=== PATIENT | female | born 1940 | race Caucasian/White ===

== ENCOUNTER 2017-02-01 10:45 | Day surgery (SDC) | payer MEDICARE, BC ==
[~2017-02-01 10:45] MED LIST: ceFAZolin 1,000 MG in SODIUM CHLORIDE 0.9% IRRIGATIO 250 ML IRRIGATION ONE; ceFAZolin 2 GM in SODIUM CHLORIDE 0.9% 100 ML IVPB ONE
[2017-02-01 11:16] LABS: Glucose,Whole Blood 134 mg/dL (75-99)
[2017-02-01 11:22] LABS: Basophils # (A) 0.1 k/uL (0-0.2); Basophils % (A) 0 %; CH 29.3; CHCM 32.2; Eosinophils # (A) 0.1 k/uL (0-0.7); Eosinophils % (A) 1 %; HCT 44.6 % (34.0-46.0); HDW 2.41; HGB 14.6 gm/dL (11.4-16.0); Luc # (Auto) 0.16; Luc % (Auto) 1; Lymphocytes # (A) 1.9 k/uL (1.0-4.8); Lymphocytes % (A) 13 %; MCH 29.9 pg (25.0-35.0); MCHC 32.6 g/dL (31.0-37.0); MCV 91.6 fL (80.0-100.0); Monocytes # (A) 0.5 k/uL (0-1.0); Monocytes % (A) 4 %; Neutrophils # (A) 11.6 k/uL (1.3-7.7); Neutrophils % (A) 81 %; RBC 4.88 m/uL (3.80-5.40); RDW 14.2 % (11.5-15.5); WBC 14.3 k/uL (3.8-10.6)
[2017-02-01 11:30] LABS: Anion Gap 14 mmol/L; Blood Urea Nitrogen 11 mg/dL (7-17); Calcium 9.5 mg/dL (8.4-10.2); Carbon Dioxide 25 mmol/L (22-30); Chloride 104 mmol/L (98-107); Glucose 138 mg/dL (74-99); Non-African American GFR(MDRD) >60 (>60 ml/min/1.73 sqM); Sodium 143 mmol/L (137-145)
[2017-02-01] MEDS ORDERED: SODIUM CHLORIDE 0.9% 500 ML IV ONE (11:30)
[2017-02-01 11:31] LABS: INR 1.8 (<1.1); Potassium 4.3 mmol/L (3.5-5.1); Prothrombin Time 17.6 sec (9.0-12.0)
[2017-02-01] MEDS ORDERED: fentaNYL (PF) 50 MCG/ML 2 ML AMP ONE (14:09)
[2017-02-01] MEDS ORDERED: fentaNYL (PF) 50 MCG/ML 2 ML AMP IV ONE (14:11)
[2017-02-01] MEDS ORDERED: MIDAZOLAM 2 MG/2 ML VIAL ONE (14:29)
[2017-02-01] MEDS ORDERED: LIDOCAINE 1% INJ 10MG/ML (20 ML MDV) SQ ONE ×2 (14:30→14:38)
[2017-02-01] MEDS ORDERED: MIDAZOLAM 2 MG/2 ML VIAL IV ONE (14:32)
--- NOTE | 2017-02-01 15:23 | P.PCN ---
Preoperative Diagnosis: Patient underwent EP procedure under conscious sedation/moderate sedation, monitoring of the level of consciousness and physiologic parameters including but not limited to vital signs and oxygenation. Patient tolerated the procedure well without any acute complications. Start time: 1411 Stop time: 1507
[2017-02-01] MEDS ORDERED: ACETAMINOPHEN TAB 325 MG TAB PO PRN (15:24)
[2017-02-01] MEDS ORDERED: traMADol-ACETAMINOP 37.5-325MG 1 EACH TAB PO PRN (15:25)
[2017-02-01] MEDS ORDERED: FUROSEMIDE 20 MG TAB PO PRN (15:25)
[2017-02-01] MEDS ORDERED: RISEDRONATE SODIUM 150 MG PO SCH (15:30)
--- NOTE | 2017-02-01 15:45 | PCN ---
DATE OF PROCEDURE: 02/01/2017 This patient is a 76-year-old female with underlying atrial fibrillation and bradycardia, on rate control and anticoagulation strategy, referred for pacemaker generator change battery for normal battery depletion. Patient was brought to the EP lab in a fasting state. Written informed consent was obtained prior to the procedure. The left shoulder area was prepped and draped as per protocol. Lidocaine 1% was used for local anesthesia. A 4 cm incision was made directly over the previous surgical site and carried down to the level of the pectoralis muscle. Scar was excised. Partial capsulectomy was performed. The old generator was disconnected. The pacemaker lead was interrogated. The new generator was implanted. Wound was closed in 3 layers and dressed per protocol, achieving hemostasis. The chronic RV lead was a Medtronic model #5092, 58 cm in length, and serial #[id number]. The chronic generator was a Medtronic Sesr01 serial #[id number]. It was originally implanted in the November of 2008. The new generator implanted was a [employer] model # PY2039, serial #[id number]. The lead was interrogated. The R waves were 10.4 mV, pacing impedance of 550 ohms, pacing threshold 0.5 v at 0.5 ms. Ten-volt test was negative. RESULT: Successful single-chamber pacemaker generator change for atrial fibrillation with bradycardia, on rate control and anticoagulation strategy. PLAN: Program pacemaker to VVI 50 bpm and add rate responsiveness as indicated by pacemaker telemetry in the next several weeks to months.
--- NOTE | 2017-02-01 15:47 | LTR ---
February 01, 2017 RE: Titus Tanya P Dear Kenzie, I had the pleasure of seeing Tanya Qureshi in electrophysiology followup for pacemaker generator change. Battery is at elective replacement for normal battery depletion. She underwent successful pacemaker generator change without any acute complications. She will be monitored overnight on telemetry and will be discharged home after receiving 4 doses of IV antibiotics. Thank you for entrusting me with the care of your patient. Warm regards. Sincerely, NACHO RESENDIZ MD
[2017-02-01] MEDS ORDERED: ACETAMINOPHEN IV (For NPO) 1,000 MG in EMPTY BAG 1 BAG IVPB ONE (17:00)
[2017-02-01 17:32] LABS: Glucose,Whole Blood 150 mg/dL (75-99)
[2017-02-01 17:39] VITALS: BMI 42.8
[2017-02-01] MEDS: SODIUM CHLORIDE 0.9% 1,000 ML IV SCH (19:32)
[2017-02-01 20:35] LABS: Glucose,Whole Blood 179 mg/dL (75-99)
[2017-02-01] MEDS: ceFAZolin 2 GM in SODIUM CHLORIDE 0.9% 100 ML IVPB SCH (20:35)
[2017-02-01] MEDS: METOPROLOL TARTRATE 50 MG TAB PO SCH (20:35)
[2017-02-01] MEDS: metFORMIN 500 MG TAB PO SCH (20:35)
[2017-02-01] MEDS: HYDROcodone/APAP 5-325MG 1 EACH TAB PO PRN (22:09)
[2017-02-02] MEDS: ceFAZolin 2 GM in SODIUM CHLORIDE 0.9% 100 ML IVPB SCH ×3 (02:23→12:49)
[2017-02-02] MEDS: HYDROcodone/APAP 5-325MG 1 EACH TAB PO PRN (05:40)
[2017-02-02 06:45] LABS: Glucose,Whole Blood 134 mg/dL (75-99)
[2017-02-02 07:50] VITALS: RESP 18
[2017-02-02] MEDS: metFORMIN 500 MG TAB PO SCH (08:13)
[2017-02-02] MEDS: METOPROLOL TARTRATE 50 MG TAB PO SCH (08:13)
[2017-02-02] MEDS: SODIUM CHLORIDE 0.9% 1,000 ML IV SCH (08:21)
[2017-02-02] MEDS ORDERED: LISINOPRIL 2.5 MG TAB PO SCH (09:00)
[2017-02-02] MEDS ORDERED: DILTIAZEM CD 180 MG CAP.ER.24H PO SCH (09:00)
[2017-02-02] MEDS ORDERED: EZETIMIBE 10 MG TAB PO SCH (09:00)
[2017-02-02 11:38] VITALS: BP 116/58; PULSE 89; TEMP 97.9
[2017-02-02 11:55] LABS: Glucose,Whole Blood 129 mg/dL (75-99)
== END 2017-02-02 14:40 | disposition home or self-care (01) ==
LOC: CATHEP 10:45 → 3OBS 15:14 → CATHEP 02-02 14:40
PROVIDERS: ATTEND Internal Medicine Clinical Cardiac Electrophysiology
DX: Z45.018 Encounter for adjustment and management of other part of cardiac pacemaker (principal); I48.2 Chronic atrial fibrillation; R00.1 Bradycardia, unspecified; Z79.01 Long term (current) use of anticoagulants; I25.10 Atherosclerotic heart disease of native coronary artery without angina pectoris; I10 Essential (primary) hypertension; Z82.49 Family history of ischemic heart disease and other diseases of the circulatory system; E11.9 Type 2 diabetes mellitus without complications; Z79.84 Long term (current) use of oral hypoglycemic drugs; E78.2 Mixed hyperlipidemia; Z79.899 Other long term (current) drug therapy; Z88.1 Allergy status to other antibiotic agents
CPT/HCPCS: 33227; 80048; 85025; 85610; C1786; J2250; J0690 ×2; J2001; J3010

== ENCOUNTER → 2017-06-15 | Outpatient (CLI) | payer MEDICARE, BC ==
--- NOTE | 2017-06-16 07:06 | US ---
EXAMINATION TYPE: US thyroid st tissue head/neck DATE OF EXAM: 06/15/2017 COMPARISON: NONE CLINICAL HISTORY: Neck Nodule R22.1. Pt states palpable lump left lateral neck x 6 weeks/ pt denies p ain in area Left lateral neck where pt feels palpable shows a hypoechoic, vascular lesion= 3.3 x 1.4 x 1.6 cm ?lymph node At area of palpable abnormality there is well-defined oval-shaped fairly homogeneous hypervascular le indira as noted above, does not have imaging characteristics consistent with benign lymph node. IMPRESSION: Abnormal solid lesion at level of palpable abnormality, malignant adenopathy is in differential. Cont rast-enhanced neck CT correlation advised to further evaluate this lesion and assess for additional l esions.
== END | disposition home or self-care (01) ==
LOC: RADUSMAIN 17:29
PROVIDERS: ATTEND Family Medicine
DX: R22.1 Localized swelling, mass and lump, neck (principal)
CPT/HCPCS: 76536

== ENCOUNTER → 2017-06-24 | Outpatient (CLI) | payer MEDICARE, BC ==
[2017-06-24 11:30] LABS: Blood Urea Nitrogen 13 mg/dL (7-17); Non-African American GFR(MDRD) >60 (>60 ml/min/1.73 sqM)
--- NOTE | 2017-06-24 12:38 | CT ---
EXAMINATION TYPE: CT soft tissue neck w con DATE OF EXAM: 06/24/2017 HISTORY: Patient complains of neck mass, marked by BB. COMPARISON: Thyroid ultrasound dated 06/15/2017 CT DLP: 294.2 mGycm. Automated Exposure Control for Dose Reduction was Utilized. TECHNIQUE: CT scan of the neck is performed with IV Contrast, patient injected with 100 mL of Omnipa que 300, axial images are obtained, coronal and sagittal reformatted images are reviewed. FINDINGS: Airway: No gross abnormality seen. Parotid/submandibular glands: Eccentric within the superficial lobe of the left parotid gland but ext ending into the deep lobe there is a hyperattenuated, well-circumscribed, noncystic 2.0 x 1.5 x 2.9 c m mass with a to extend inferiorly outside of the parotid gland. This is seen posterior to the retrom andibular vein, however a branch of the retromandibular vein surrounds this mass and therefore cautio n is advised if biopsy is performed. No adjacent or abnormal appearing lymph nodes are seen within th e neck. Left jugulodigastric node measures 6 mm x 8 mm, within normal limits. The remainder the left parotid gland appears unremarkable. Carotid/Vascular Structures: Bilateral calcific atheromatous plaquing within the common carotid arter ies, greatest within the carotid bulbs, and left internal carotid artery just distal to the carotid b ulb with approximately 65% short segment luminal narrowing. Osseous Structures: Multilevel degenerative changes are displayed as intervertebral disc space narrow ing, endplate sclerosis, disc ossify complexes, and facet arthropathy. IMPRESSION: 2.9 cm left parotid gland mass closely associated with the retromandibular vein with no a djacent lymphadenopathy. 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 Considerations are for pleomorphic adenoma, mucoepidermoid carcinoma or other noncystic parotid n eoplasm. Further characterization could be performed with MR. If percutaneous sampling is performed a ttention should be paid to the close association with the retromandibular vein.
== END | disposition home or self-care (01) ==
LOC: RADCTMAIN 10:47
PROVIDERS: ATTEND Family Medicine
DX: K11.8 Other diseases of salivary glands (principal); R22.1 Localized swelling, mass and lump, neck
CPT/HCPCS: 82565; 84520; 70491; 36415; Q9967

== ENCOUNTER 2024-09-14 06:15 | Inpatient (IN) | payer MEDICARE, BC ==
[2024-09-14] MEDS ORDERED: HYDROmorphone 1 MG/ML 1 ML SYRINGE IVP STA (06:51)
--- NOTE | 2024-09-14 06:51 | ED ---
Fall HPI - General Chief Complaint: Fall Stated Complaint: Fall, R Leg Injury Time Seen by Provider: 09/14/24 06:50 Source: patient, family, RN notes reviewed Mode of arrival: wheelchair Limitations: no limitations - History of Present Illness Initial Comments: 84-year-old female presenting to the ER with a chief complaint of falls. Family is aiding in HPI as patient is a poor historian and has memory impairment. Daughter, at bedside, state is in the past 24 to 36 hours patient has had multiple falls. Patient was getting up off the toilet and started to experience pain in her right knee. Patient has chronic right knee pain due to osteoarthritis. Daughter believes patient went to grab the wall lost her balance causing her to slide down onto her right leg. Denies head injury. Patient does take Eliquis due to atrial fibrillation. Again this morning around 4 AM patient slid out of bed. Denies head injury. Patient does report intermittent shortness of breath past 3 to 4 days. Denies cough, chest pain or fevers. Family report her right leg appears swollen. Patient denies any other complaints. - Related Data Home Medications Medication Instructions Recorded Confirmed Diltiazem Cd [Cardizem CD] 180 mg PO HS 08/06/14 09/14/24 Metoprolol Tartrate [Lopressor] 50 mg PO BID 08/06/14 09/14/24 Acetaminophen Tab [Tylenol] 325 - 650 mg PO Q4H PRN MDD 10 09/14/24 09/14/24 tablets Apixaban [Eliquis] 5 mg PO BID 09/14/24 09/14/24 Benazepril [Lotensin] 5 mg PO DAILY 09/14/24 09/14/24 metFORMIN HCL 500 mg PO BID 09/14/24 09/14/24 Allergies Allergy/AdvReac Type Severity Reaction Status Date / Time erythromycin base Allergy Rash/Hives Verified 09/14/24 09:45 [Erythromycin Base] Review of Systems ROS Statement: Those systems with pertinent positive or pertinent negative responses have been documented in the HPI. ROS Other: All systems not noted in ROS Statement are negative. Past Medical History Past Medical History: Atrial Fibrillation, Cancer, COPD, Diabetes Mellitus, Eye Disorder, Hearing Disorder / Deafness, Hyperlipidemia, Hypertension, Memory Impairment, Musculoskeletal Disorder, Sleep Apnea/CPAP/BIPAP Additional Past Medical History / Comment(s): Osteoporosis. Gallstones. Deviated septum. Laurence Lockhart. Spinal Stenosis, HARD TO LAY ON BACK OR WALK, SCIATICA ALSO. USES CANE FOR DISTANCES. HX CA UTERUS, SKIN. MILD CVA, SEV TIA'S, SOME SHORT-TERM MEMORY PROB. MILD VARICOSE VEINS. CATARACT RT EYE. NO TX FOR SLEEP APNEA. SEE DR De León History of Any Multi-Drug Resistant Organisms: None Reported Past Surgical History: Adenoidectomy, Appendectomy, Bowel Resection, Heart Catheterization, Hysterectomy, Pacemaker, Tonsillectomy Additional Past Surgical History / Comment(s): EXC Cataract LT Eye. Past Anesthesia/Blood Transfusion Reactions: Family History of Problems w/ Anesthesia Additional Past Anesthesia/Blood Transfusion Reaction / Comment(s): PROB W/ MESHA IN S - ANESTHESIA NOT WORKING. Type of Cardiac Device: Permanent Pacemaker Device Placement Date:: UNKNOWN, [employer]TRONIC Past Psychological History: Depression, Panic Disorder Past Alcohol Use History: None Reported Past Drug Use History: None Reported - Past Family History Mother Family Medical History: Cancer General Exam General appearance: alert, in no apparent distress Head exam: Present: atraumatic, normocephalic, normal inspection Respiratory exam: Present: normal lung sounds bilaterally. Absent: respiratory distress, wheezes, rales, rhonchi, stridor Cardiovascular Exam: Present: regular rate, irregular rhythm, normal heart sounds. Absent: systolic murmur, diastolic murmur, rubs, gallop, clicks GI/Abdominal exam: Present: soft, normal bowel sounds. Absent: distended, tenderness, guarding, rebound, rigid Extremities exam: Present: tenderness (anterior right marin. no overlying skin changes. 2+ pitting edema right foot and pretibial) Neurological exam: Present: alert Skin exam: Present: warm, dry, intact, normal color. Absent: rash Course Vital Signs 09/14/24 09/14/24 09/14/24 06:25 09:22 10:22 Temperature 97.6 F 98 F Pulse Rate 80 69 66 Respiratory 18 15 16 Rate Blood Pressure 137/84 174/98 154/94 O2 Sat by Pulse 93 L 93 L 97 Oximetry 09/14/24 13:09 Temperature 98.2 F Pulse Rate 91 Respiratory 18 Rate Blood Pressure 144/63 O2 Sat by Pulse 93 L Oximetry - Reevaluation(s) Reevaluation #1: 09/14/24 10:07 Case discussed with for admission. Medical Decision Making - Medical Decision Making Was pt. sent in by a medical professional or institution ([facility], [employer], urgent care, hospital, or fdc...) When possible be specific @ -No Did you speak to anyone other than the patient for history (EMS, parent, family, police, friend...)? What history was obtained from this source @ -Daughter, at bedside, aiding in HPI past medical history Did you review nursing and triage notes (agree or disagree)? Why? @ -I reviewed and agree with nursing and triage notes Were old charts reviewed (outside hosp., previous admission, EMS record, old EKG, old radiological studies, urgent care reports/EKG's, fdc records)? Report findings @ -No old charts were reviewed Differential Diagnosis (chest pain, altered mental status, abdominal pain women, abdominal pain men, vaginal bleeding, weakness, fever, dyspnea, syncope, headache, dizziness, GI bleed, back pain, seizure, CVA, palpatations, mental health, musculoskeletal)? @ -Differential Weakness:Hypoglycemia, shock, sepsis, hyponatremia, anemia, infection, MT, ETOH, adverse medicine reaction, overdose, stroke, this is not meant to be an all-inclusive list. EKG interpreted by me (3pts min.). @ -As above X-rays interpreted by me (1pt min.). @ -Chest x-ray interpreted me negative for acute process. Right tib-fib x-ray negative for acute process. Right foot x-ray negative for acute process CT interpreted by me (1pt min.). @ -None done U/S interpreted by me (1pt. min.). @ -None done What testing was considered but not performed or refused? (CT, X-rays, U/S, labs)? Why? @ -None What meds were considered but not given or refused? Why? @ -None Did you discuss the management of the patient with other professionals (professionals i.e. [facility], [employer], lab, RT, psych nurse, oncology social work, tester vibrator equipment, teacher, protection officer, supervisor case loading)? Give summary @ -Yes, case discussed with Dr. Ness for admission Was smoking cessation discussed for >3mins.? @ -No Was critical care preformed (if so, how long)? @ -No Were there social determinants of health that impacted care today? How? (Homelessness, low income, unemployed, alcoholism, drug addiction, transportation, low edu. Level, literacy, decrease access to med. care, care home, rehab)? @ -No Was there de-escalation of care discussed even if they declined (Discuss DNR or withdrawal of care, Hospice)? DNR status @ -No What co-morbidities impacted this encounter? (DM, HTN, Smoking, COPD, CAD, Cancer, CVA, ARF, Chemo, Hep., AIDS, mental health diagnosis, sleep apnea, morbid obesity)? @ -None Was patient admitted / discharged? Hospital course, mention meds given and route, prescriptions, significant lab abnormalities, going to OR and other pertinent info. @ -Admitted. 84-year-old female presented to the ER with chief complaint of right leg pain. History and physical exam completed. Vitals within normal limits. History is limited as patient is a poor historian. Daughter was aiding. Patient in no signs of acute distress. Exam remarkable bilateral upper and lower extremities neurovascular intact. Mild tenderness to anterior right marin. No overlying skin changes. Due to concern of frequent falls, laboratory studies and imaging will be obtained. Laboratory studies showing WBC of 17.7 with a left shift. Sodium 132, potassium 4.0, chloride 96. BNP 1340. Urinalysis concerning of infection with positive nitrates and many bacteria. Patient given 2 g IV Rocephin. Hospital currently out of blood culture tubes. Viral swabs negative. Chest x-ray negative. Right tib-fib and foot x-ray negative. Due to concern of recent falls and UTI admission was considered and discussed with . Patient agreeable for admission. Patient admitted in stable condition. Case discussed with ED attending with Dr. Keyes. Undiagnosed new problem with uncertain prognosis? @ -No Drug Therapy requiring intensive monitoring for toxicity (Heparin, Nitro, Insulin, Cardizem)? @ -No Were any procedures done? @ -No Diagnosis/symptom? @ -UTI/weakness Acute, or Chronic, or Acute on Chronic? @ -Acute Uncomplicated (without systemic symptoms) or Complicated (systemic symptoms)? @ -Complicated Side effects of treatment? @ -No Exacerbation, Progression, or Severe Exacerbation? @ -No Poses a threat to life or bodily function? How? (Chest pain, USA, MT, pneumonia, PE, COPD, DKA, ARF, appy, cholecystitis, CVA, Diverticulitis, Homicidal, Suicidal, threat to staff... and all critical care pts) @ -Yes, UTI can lead to sepsis and endorgan dysfunction. - Lab Data Result diagrams: 09/14/24 07:42 09/14/24 07:42 Lab Results 09/14/24 09/14/24 09/14/24 Range/Units 07:42 07:42 07:42 WBC 17.7 H (3.8-10.6) k/uL RBC 4.64 (3.80-5.40) m/uL Hgb 12.9 (11.4-16.0) gm/dL Hct 41.9 (34.0-46.0) % MCV 90.3 (80.0-100.0) fL MCH 27.9 (25.0-35.0) pg MCHC 30.9 L (31.0-37.0) g/dL RDW 13.6 (11.5-15.5) % Plt Count 305 (150-450) k/uL MPV 7.1 Neutrophils % 86 % Lymphocytes % 8 % Monocytes % 4 % Eosinophils % 0 % Basophils % 0 % Neutrophils # 15.3 H (1.3-7.7) k/uL Lymphocytes # 1.4 (1.0-4.8) k/uL Monocytes # 0.8 (0-1.0) k/uL Eosinophils # 0.1 (0-0.7) k/uL Basophils # 0.0 (0-0.2) k/uL Hypochromasia Slight Sodium 132 L (137-145) mmol/L Potassium 4.0 (3.5-5.1) mmol/L Chloride 96 L (98-107) mmol/L Carbon Dioxide 24 (22-30) mmol/L Anion Gap 12 mmol/L BUN 12 (7-17) mg/dL Creatinine 0.68 (0.52-1.04) mg/dL Est GFR (CKD-EPI)AfAm >90 (>60 ml/min/1.73 sqM) Est GFR (CKD-EPI)NonAf 80 (>60 ml/min/1.73 sqM) Glucose 148 H (74-99) mg/dL Calcium 9.2 (8.4-10.2) mg/dL Total Bilirubin 1.0 (0.2-1.3) mg/dL AST 22 (14-36) U/L ALT 15 (4-34) U/L Alkaline Phosphatase 50 (38-126) U/L NT-Pro-B Natriuret Pep 1340 pg/mL Total Protein 7.6 (6.3-8.2) g/dL Albumin 4.4 (3.5-5.0) g/dL Urine Color Urine Appearance (Clear) Urine pH (5.0-8.0) Ur Specific Scurry (1.001-1.035) Urine Protein (Negative) Urine Glucose (UA) (Negative) Urine Ketones (Negative) Urine Blood (Negative) Urine Nitrite (Negative) Urine Bilirubin (Negative) Urine Urobilinogen (<2.0) mg/dL Ur Leukocyte Esterase (Negative) Urine RBC (0-5) /hpf Urine WBC (0-5) /hpf Urine WBC Clumps (None) /hpf Ur Squamous Epith Cells (0-4) /hpf Urine Bacteria (None) /hpf Urine Mucus (None) /hpf Influenza Type A (PCR) Not Detected (Not Detectd) Influenza Type B (PCR) Not Detected (Not Detectd) RSV (PCR) Not Detected (Not Detectd) SARS-CoV-2 (PCR) Not Detected (Not Detectd) 09/14/24 Range/Units 07:45 WBC (3.8-10.6) k/uL RBC (3.80-5.40) m/uL Hgb (11.4-16.0) gm/dL Hct (34.0-46.0) % MCV (80.0-100.0) fL MCH (25.0-35.0) pg MCHC (31.0-37.0) g/dL RDW (11.5-15.5) % Plt Count (150-450) k/uL MPV Neutrophils % % Lymphocytes % % Monocytes % % Eosinophils % % Basophils % % Neutrophils # (1.3-7.7) k/uL Lymphocytes # (1.0-4.8) k/uL Monocytes # (0-1.0) k/uL Eosinophils # (0-0.7) k/uL Basophils # (0-0.2) k/uL Hypochromasia Sodium (137-145) mmol/L Potassium (3.5-5.1) mmol/L Chloride (98-107) mmol/L Carbon Dioxide (22-30) mmol/L Anion Gap mmol/L BUN (7-17) mg/dL Creatinine (0.52-1.04) mg/dL Est GFR (CKD-EPI)AfAm (>60 ml/min/1.73 sqM) Est GFR (CKD-EPI)NonAf (>60 ml/min/1.73 sqM) Glucose (74-99) mg/dL Calcium (8.4-10.2) mg/dL Total Bilirubin (0.2-1.3) mg/dL AST (14-36) U/L ALT (4-34) U/L Alkaline Phosphatase (38-126) U/L NT-Pro-B Natriuret Pep pg/mL Total Protein (6.3-8.2) g/dL Albumin (3.5-5.0) g/dL Urine Color Light Yellow Urine Appearance Cloudy H (Clear) Urine pH 5.0 (5.0-8.0) Ur Specific Scurry 1.016 (1.001-1.035) Urine Protein Trace H (Negative) Urine Glucose (UA) Negative (Negative) Urine Ketones Negative (Negative) Urine Blood Trace H (Negative) Urine Nitrite Positive H (Negative) Urine Bilirubin Negative (Negative) Urine Urobilinogen <2.0 (<2.0) mg/dL Ur Leukocyte Esterase Large H (Negative) Urine RBC 12 H (0-5) /hpf Urine WBC 135 H (0-5) /hpf Urine WBC Clumps Occasional H (None) /hpf Ur Squamous Epith Cells 12 H (0-4) /hpf Urine Bacteria Many H (None) /hpf Urine Mucus Few H (None) /hpf Influenza Type A (PCR) (Not Detectd) Influenza Type B (PCR) (Not Detectd) RSV (PCR) (Not Detectd) SARS-CoV-2 (PCR) (Not Detectd) - EKG Data -: EKG Interpreted by Me EKG Comments: EKG taken at 7: 51 showing atrial fibrillation. No acute ST segment or T wave abnormalities. Ventricular rate 87, QRS duration 76, QT/QTc 358/402. - Radiology Data Radiology results: report reviewed, image reviewed Disposition Clinical Impression: Fall, UTI (urinary tract infection) Disposition: ADMITTED IP TO THIS HOSP Condition: Stable Time of Disposition: 10:07
[2024-09-14] MEDS: HYDROmorphone 0.5 MG/0.5 ML SYRINGE IVP STA (07:47)
[2024-09-14] MEDS: ONDANSETRON 4 MG/2 ML VIAL IVP STA (07:47)
[2024-09-14 08:16] LABS: Basophils % (A) 0 %; Eosinophils # (A) 0.1 k/uL (0-0.7); Eosinophils % (A) 0 %; HCT 41.9 % (34.0-46.0); HGB 12.9 gm/dL (11.4-16.0); Hypochromasia Slight; Lymphocytes # (A) 1.4 k/uL (1.0-4.8); Lymphocytes % (A) 8 %; MCH 27.9 pg (25.0-35.0); MCHC 30.9 g/dL (31.0-37.0); MCV 90.3 fL (80.0-100.0); Mean Platelet Volume 7.1; Monocytes # (A) 0.8 k/uL (0-1.0); Monocytes % (A) 4 %; Neutrophils # (A) 15.3 k/uL (1.3-7.7); Neutrophils % (A) 86 %; Platelet Count 305 k/uL (150-450); RBC 4.64 m/uL (3.80-5.40); RDW 13.6 % (11.5-15.5); WBC 17.7 k/uL (3.8-10.6)
[2024-09-14 08:27] LABS: Appearance,Urine Cloudy (Clear); Bacteria,Urine Many /hpf; Bilirubin,Urine Negative (Negative); Blood,Urine Trace (Negative); Color,Urine Light Yellow; Glucose,Urine (UA) Negative (Negative); Ketones,Urine Negative (Negative); Leukocyte Esterase,Urine Large (Negative); Mucus,Urine Few /hpf; Nitrite,Urine Positive (Negative); Protein,Urine Trace (Negative); RBC,Urine 12 /hpf (0-5); Specific Gravity,Urine 1.016 (1.001-1.035); Squamous Epithelial Cell,Urine 12 /hpf (0-4); Urobilinogen,Urine <2.0 mg/dL (<2.0); WBC,Urine 135 /hpf (0-5)
[2024-09-14 08:51] LABS: ALT 15 U/L (4-34); AST 22 U/L (14-36); African American GFR (CKD) >90 (>60 ml/min/1.73 sqM); Albumin 4.4 g/dL (3.5-5.0); Alkaline Phosphatase 50 U/L (38-126); Anion Gap 12 mmol/L; Blood Urea Nitrogen 12 mg/dL (7-17); Calcium 9.2 mg/dL (8.4-10.2); Carbon Dioxide 24 mmol/L (22-30); Chloride 96 mmol/L (98-107); Glucose 148 mg/dL (74-99); Non-African American GFR(CKD) 80 (>60 ml/min/1.73 sqM); Sodium 132 mmol/L (137-145); Total Protein 7.6 g/dL (6.3-8.2)
[2024-09-14 08:57] LABS: NT-Pro-B-Type Natriuretic Pept 1340 pg/mL
--- NOTE | 2024-09-14 09:27 | XR ---
EXAMINATION TYPE: XR chest 2V DATE OF EXAM: 09/14/2024 COMPARISON: 01/30/2013 HISTORY: Shortness of breath TECHNIQUE: Frontal and lateral views of the chest are obtained. FINDINGS: Scattered senescent parenchymal changes noted. Hyperinflation compatible with COPD. No evidence for infiltrate. No evidence for atelectasis. Pulmonary venous congestion without overt fa ilure. Single-lead pacer is in place. Heart size is stable. Mediastinal structures are stable and grossly unremarkable. No evidence for hilar prominence. Degenerative changes dorsal spine. IMPRESSION: 1. No evidence for acute pulmonary disease. [facility], , 09/14/2024 7:47 AM
--- NOTE | 2024-09-14 09:27 | XR ---
EXAMINATION TYPE: XR foot limited RT DATE OF EXAM: 09/14/2024 CLINICAL HISTORY: pain TECHNIQUE: Frontal, lateral and oblique images of the right foot are obtained. COMPARISON: None. FINDINGS: There is no acute fracture/dislocation evident. Severe narrowing first metatarsophalangeal joint with hallux valgus deformity. Dorsal soft tissue swelling noted. Vascular calcifications seen. IMPRESSION: There is no acute fracture or dislocation. ICD 10 NO FRACTURE, INITIAL EVALUATION [facility], , 09/14/2024 7:49 AM
--- NOTE | 2024-09-14 09:27 | XR ---
EXAMINATION TYPE: XR tibia fibula RT DATE OF EXAM: 09/14/2024 CLINICAL HISTORY: pain TECHNIQUE: AP and lateral images of the right tibia and fibula are obtained. COMPARISON: None. FINDINGS: There is no acute fracture/dislocation evident. The joint spaces appear within normal cross its. The overlying soft tissue appears unremarkable. IMPRESSION: There is no acute fracture or dislocation seen. ICD 10 NO FRACTURE, INITIAL EVALUATION [facility], , 09/14/2024 7:48 AM
[2024-09-14] MEDS: cefTRIAXone IN SWFI 1,000 MG/10 ML SYRINGE IVP STA ×2 (09:47→10:21)
[2024-09-14] MEDS: METOCLOPRAMIDE 5 MG/ML 2 ML VIAL IVP STA (09:48)
[2024-09-14] MEDS ORDERED: NALOXONE 0.4 MG/ML 1 ML VIAL IV PRN (10:04)
[2024-09-14] MEDS: SODIUM CHLORIDE 0.9% 1,000 ML IV SCH (10:11)
[2024-09-14] MEDS: ACETAMINOPHEN TAB 325 MG TAB PO PRN (18:47)
[2024-09-14] MEDS: HYDROcodone/APAP 5-325MG 1 EACH TAB PO STA (20:05)
[2024-09-14 20:23] LABS: Glucose,Whole Blood 145 mg/dL (70-110)
[2024-09-15] MEDS: HYDROcodone/APAP 5-325MG 1 EACH TAB PO PRN (03:25)
[2024-09-15 07:32] LABS: Glucose,Whole Blood 159 mg/dL (70-110)
[2024-09-15 12:11] LABS: Glucose,Whole Blood 140 mg/dL (70-110)
--- NOTE | 2024-09-15 12:20 | P.HPIM ---
History of Present Illness This is a pleasant 84 years old female with past medical history of multiple medical problems as below. Patient this morning is poor historian. As per daughter she took Honeydew at home and she has history of dementia which makes her more sleepy. She was not slept for 2 days. Patient wake up to verbal stimuli as respond to questions but then go back to sleep. As per daughter she was fine earlier this morning. Will keep monitoring. Because of this information were obtained from the daughter. Patient daughter stated that she was in the bathroom 2 days ago when she slipped and fell on her right side she was complaining from pain in her right leg and her daughter gave her 2 Tylenol's, next day she got up in the middle of the night went to the restroom again on her way back to the bed she could not get into it and she slipped into the floor again. As per daughter she confirms she denies any head trauma. However because of her pain she took Honeydew and she was sleepy this morning as above Patient is complaining from pain in her right hip area and there is a bruise behind right leg. As per daughters patient denied chest pain or dyspnea, no abdominal complaint, no headache dizziness or weakness or numbness. Patient was eager to go home yesterday but ER attending asked her to to stay 1 day overnight and she agrees. Patient was found to have acute urinary tract infection and started on Rocephin in the emergency room. Review of Systems ROS unobtainable: due to mental status Past Medical History Past Medical History: Atrial Fibrillation, Cancer, COPD, Diabetes Mellitus, Eye Disorder, Hearing Disorder / Deafness, Hyperlipidemia, Hypertension, Memory Impairment, Musculoskeletal Disorder, Sleep Apnea/CPAP/BIPAP Additional Past Medical History / Comment(s): Osteoporosis. Gallstones. Deviated septum. Laurence Lockhart. Spinal Stenosis, HARD TO LAY ON BACK OR WALK, SCIATICA ALSO. USES CANE FOR DISTANCES. HX CA UTERUS, SKIN. MILD CVA, SEV TIA'S, SOME SHORT-TERM MEMORY PROB. MILD VARICOSE VEINS. CATARACT RT EYE. NO TX FOR SLEEP APNEA. SEE H&P History of Any Multi-Drug Resistant Organisms: None Reported Past Surgical History: Adenoidectomy, Appendectomy, Bowel Resection, Heart Catheterization, Hysterectomy, Pacemaker, Tonsillectomy Additional Past Surgical History / Comment(s): EXC Cataract LT Eye. Past Anesthesia/Blood Transfusion Reactions: Family History of Problems w/ Anesthesia Additional Past Anesthesia/Blood Transfusion Reaction / Comment(s): PROB W/ MESHA IN S - ANESTHESIA NOT WORKING. Type of Cardiac Device: Permanent Pacemaker Device Placement Date:: UNKNOWN, [employer] Past Psychological History: Depression, Panic Disorder Additional Psychological History / Comment(s): OCC PANIC ATTACK, NO TX CURRENTLY Smoking Status: Former smoker Past Alcohol Use History: None Reported Additional Past Alcohol Use History / Comment(s): SMOKED 30 YEARS, 2 OR > PPD, QUIT 1985 Past Drug Use History: None Reported - Past Family History Mother Family Medical History: Cancer Medications and Allergies Home Medications Medication Instructions Recorded Confirmed Type Diltiazem Cd [Cardizem CD] 180 mg PO HS 08/06/14 09/14/24 History Metoprolol Tartrate [Lopressor] 50 mg PO BID 08/06/14 09/14/24 History Acetaminophen Tab [Tylenol] 325 - 650 mg PO Q4H PRN MDD 10 09/14/24 09/14/24 History tablets Apixaban [Eliquis] 5 mg PO BID 09/14/24 09/14/24 History Benazepril [Lotensin] 5 mg PO DAILY 09/14/24 09/14/24 History metFORMIN HCL 500 mg PO BID 09/14/24 09/14/24 History Allergies Allergy/AdvReac Type Severity Reaction Status Date / Time erythromycin base Allergy Rash/Hives Verified 09/14/24 09:45 [Erythromycin Base] Physical Exam Vitals: Vital Signs Temp Pulse Pulse Resp BP BP Pulse Ox 09/15/24 07:30 97.8 F 112 H 18 128/83 96 09/15/24 02:00 98.6 F 128 H 14 166/81 91 L 09/14/24 20:00 97.6 F 97 14 120/65 95 09/14/24 16:02 98 F 94 15 164/68 95 09/14/24 13:09 98.2 F 91 18 144/63 93 L Intake and Output 09/14/24 09/15/24 09/15/24 22:59 06:59 14:59 Intake Total 240 40 Output Total 400 Balance 240 -360 Intake: Oral 240 40 Output: Urine 400 Other: Voiding Method External Catheter Weight 108.862 kg -GENERAL: The patient is sleepy, wakes up to verbal stimuli but go back to sleep HEENT: Pupils are round and equally reacting to light. EOMI. No scleral icterus. No conjunctival pallor. Normocephalic, atraumatic. No pharyngeal erythema. No thyromegaly. CARDIOVASCULAR: S1 and S2 present. No murmurs, rubs, or gallops. PULMONARY: Chest is clear to auscultation, no wheezing , no crackles. ABDOMEN: Soft, nontender, nondistended, normoactive bowel sounds. No palpable organomegaly. MUSCULOSKELETAL: No joint swelling or deformity. EXTREMITIES: No cyanosis, clubbing, or pedal edema. NEUROLOGICAL: Gross neurological examination did not reveal any focal deficits. SKIN: No rashes. no petechiae. Results CBC & Chem 7: 09/14/24 07:42 09/14/24 07:42 Labs: Abnormal Lab Results - Last 24 Hours (Table) 09/14/24 09/15/24 Range/Units 20:22 07:30 POC Glucose (mg/dL) 145 H 159 H (70-110) mg/dL Thrombosis Risk Factor Assmnt - Choose All That Apply Any of the Below Risk Factors Present?: Yes Each Factor Represents 1 point: Abnormal pulmonary function (COPD), Obesity (BMI >25) Other Risk Factors: Yes Each Risk Factor Represents 2 Points: Malignancy Each Risk Factor Represents 3 Points: Age 75 years or older Thrombosis Risk Factor Assessment Total Risk Factor Score: 7 Thrombosis Risk Factor Assessment Level: High Risk Assessment and Plan Assessment: Acute urinary tract infection Metabolic/toxic encephalopathy could be secondary to medication on the top of U TI Dementia, as per daughter Right hip pain, rule out fracture Fall x 2 at home. Probably without syncope as per daughter A-fib on Eliquis at home COPD with no acute exacerbation Diabetes mellitus Hypertension Hyperlipidemia Obstructive sleep apnea Hearing difficulty Obesity with BMI of 42.5 Plan: Continue with neurocheck Continue with ceftriaxone I called the lab and they will run the urine culture Check bladder scan as patient has external urine catheter now Check x-ray of the right hip Labs and medication were reviewed.. Continue same treatment. Continue with symptomatic treatment. Resume home medication. Monitor lytes and vitals. DVT and GI prophylaxis. Further recommendations depends on the clinical course of the patient DVT prophylaxis: On Eliquis GI Prophylaxis: Pepcid PT/OT: Pending Prognosis is guarded
[2024-09-15] MEDS: METOPROLOL TARTRATE 50 MG TAB PO SCH (13:22)
--- NOTE | 2024-09-15 13:27 | XR ---
EXAMINATION TYPE: XR Hip RT and AP Pelvis DATE OF EXAM: 09/15/2024 12:59 PM CLINICAL INDICATION: Female, 84 years old with history of hip pain after fall; [facility] COMPARISON: None. TECHNIQUE: XR Hip RT and AP Pelvis; hip was examined in the frontal and lateral projections and a AP pelvis. FINDINGS: Underpenetrated film. No evidence for acute process, joint dislocation or significant soft tissue swelling. Joint space and osteophyte formation of the bilateral hips. IMPRESSION: Limited underpenetrated film No evidence of fracture. [facility], , 09/15/2024 1:25 PM
[2024-09-15 17:22] LABS: Glucose,Whole Blood 178 mg/dL (70-110)
[2024-09-15 20:16] LABS: Glucose,Whole Blood 174 mg/dL (70-110)
[2024-09-15] MEDS: metFORMIN 500 MG TAB PO SCH (20:18)
[2024-09-15] MEDS: APIXABAN 5 MG TAB PO SCH (20:18)
[2024-09-15] MEDS: DILTIAZEM CD 180 MG CAP.ER.24H PO SCH (20:18)
[2024-09-15] MEDS: FAMOTIDINE 20 MG/2 ML VIAL IV SCH (20:18)
[2024-09-15] MEDS ORDERED: METOPROLOL TARTRATE 50 MG TAB PO SCH (21:00)
[2024-09-16 07:19] LABS: Glucose,Whole Blood 126 mg/dL (70-110)
[2024-09-16 09:31] LABS: BUN/Creat Ratio 13.29 Ratio (12.00-20.00); Blood Urea Nitrogen 9.3 mg/dL (9.0-27.0); Calcium 8.5 mg/dL (8.7-10.3); Carbon Dioxide 22.3 mmol/L (21.6-31.8); Chloride 102 mmol/L (96-109); Glucose 162 mg/dL (70-110); Potassium 4.3 mmol/L (3.5-5.5); Sodium 136 mmol/L (135-145)
[2024-09-16 09:43] LABS: Basophils # (A) 0.04 X 10*3/uL (0.00-0.10); Basophils % (A) 0.3 %; Eosinophils # (A) 0.17 X 10*3/uL (0.04-0.35); Eosinophils % (A) 1.4 %; HCT 36.9 % (37.2-46.3); HGB 11.1 g/dL (12.0-15.0); Lymphocytes # (A) 1.33 X 10*3/uL (0.90-5.00); Lymphocytes % (A) 10.6 %; MCH 27.7 pg (27.0-32.0); MCHC 30.1 g/dL (32.0-37.0); Mean Platelet Volume 9.5 FL (9.5-12.2); Monocytes # (A) 1.09 X 10*3/uL (0.20-1.00); Monocytes % (A) 8.7 %; NRBC Per 100 WBC 0 X 10*3/uL (0.00-0.01); Neutrophils # (A) 9.86 X 10*3/uL (1.80-7.70); Neutrophils % (A) 78.4 %; Platelet Count 279 X 10*3/uL (140-440); RBC 4.01 X 10*6/uL (4.10-5.20); RDW 14.4 % (11.5-14.5); WBC 12.57 X 10*3/uL (4.50-10.00)
[2024-09-16 12:34] LABS: Glucose,Whole Blood 146 mg/dL (70-110)
--- NOTE | 2024-09-16 14:11 | P.PN ---
Subjective This is a pleasant 84 years old female with past medical history of multiple medical problems as below. Patient this morning is poor historian. As per daughter she took Victor at home and she has history of dementia which makes her more sleepy. She was not slept for 2 days. Patient wake up to verbal stimuli as respond to questions but then go back to sleep. As per daughter she was fine earlier this morning. Will keep monitoring. Because of this information were obtained from the daughter. Patient daughter stated that she was in the bathroom 2 days ago when she slipped and fell on her right side she was complaining from pain in her right leg and her daughter gave her 2 Tylenol's, next day she got up in the middle of the night went to the restroom again on her way back to the bed she could not get into it and she slipped into the floor again. As per daughter she confirms she denies any head trauma. However because of her pain she took Victor and she was sleepy this morning as above Patient is complaining from pain in her right hip area and there is a bruise behind right leg. As per daughters patient denied chest pain or dyspnea, no abdominal complaint, no headache dizziness or weakness or numbness. Patient was eager to go home yesterday but ER attending asked her to to stay 1 day overnight and she agrees. Patient was found to have acute urinary tract infection and started on Rocephin in the emergency room. 09/16 Patient still mildly confused but she feels better as per daughter at bedside She knows in the hospital. She follows commands and answers some questions. No suprapubic pain or tenderness. Patient has poor appetite. Hemodynamically stable and afebrile Leukocytosis improving down to 12.5, hemoglobin 11.1. BMP is unremarkable and sugar controlled. Urine culture is received and is pending Objective - Vital Signs Vital signs: Vital Signs Temp 98.2 F 09/16/24 07:22 Pulse 80 09/16/24 08:00 Resp 20 09/16/24 08:00 BP 147/78 09/16/24 07:22 Pulse Ox 97 09/16/24 07:22 FiO2 Intake & Output 09/15/24 09/16/24 09/16/24 18:59 06:59 18:59 Intake Total 1080 236 Output Total 700 Balance 380 236 Intake: Intake, IV Titration 540 Amount Sodium Chloride 0.9% 1, 540 000 ml @ 45 mls/hr IV . [id number] [facility] Rx#:[id number] Oral 540 236 Output: Urine 700 Other: Voiding Method External Catheter External Catheter External Catheter # Voids 3 # Bowel Movements 0 1 - Exam -GENERAL: The patient is alert and awake, mildly confused not in any acute distress. Well developed, well nourished. HEENT: Pupils are round and equally reacting to light. EOMI. No scleral icterus. No conjunctival pallor. Normocephalic, atraumatic. No pharyngeal erythema. No thyromegaly. CARDIOVASCULAR: S1 and S2 present. No murmurs, rubs, or gallops. PULMONARY: Chest is clear to auscultation, no wheezing , no crackles. ABDOMEN: Soft, nontender, nondistended, normoactive bowel sounds. No palpable organomegaly. MUSCULOSKELETAL: No joint swelling or deformity. EXTREMITIES: No cyanosis, clubbing, or pedal edema. NEUROLOGICAL: Gross neurological examination did not reveal any focal deficits. SKIN: No rashes. no petechiae. - Labs CBC & Chem 7: 09/16/24 04:30 09/16/24 04:30 Labs: Abnormal Lab Results - Last 24 Hours (Table) 09/15/24 09/15/24 09/16/24 Range/Units 17:20 20:15 04:30 WBC 12.57 H (4.50-10.00) X 10*3/uL RBC 4.01 L (4.10-5.20) X 10*6/uL Hgb 11.1 L (12.0-15.0) g/dL Hct 36.9 L (37.2-46.3) % MCHC 30.1 L (32.0-37.0) g/dL Immature Gran # 0.08 H (0.00-0.04) X 10*3/uL Neutrophils # 9.86 H (1.80-7.70) X 10*3/uL Monocytes # 1.09 H (0.20-1.00) X 10*3/uL Glucose (70-110) mg/dL POC Glucose (mg/dL) 178 H 174 H (70-110) mg/dL Calcium (8.7-10.3) mg/dL 09/16/24 09/16/24 09/16/24 Range/Units 04:30 07:17 12:33 WBC (4.50-10.00) X 10*3/uL RBC (4.10-5.20) X 10*6/uL Hgb (12.0-15.0) g/dL Hct (37.2-46.3) % MCHC (32.0-37.0) g/dL Immature Gran # (0.00-0.04) X 10*3/uL Neutrophils # (1.80-7.70) X 10*3/uL Monocytes # (0.20-1.00) X 10*3/uL Glucose 162 H (70-110) mg/dL POC Glucose (mg/dL) 126 H 146 H (70-110) mg/dL Calcium 8.5 L (8.7-10.3) mg/dL Assessment and Plan Assessment: Acute urinary tract infection Metabolic/toxic encephalopathy could be secondary to medication on the top of UTI Dementia, as per daughter Right hip pain, rule out fracture Fall x 2 at home. Probably without syncope as per daughter A-fib on Eliquis at home COPD with no acute exacerbation Diabetes mellitus Hypertension Hyperlipidemia Obstructive sleep apnea Hearing difficulty Obesity with BMI of 42.5 Plan: Continue with neurocheck Continue with ceftriaxone I called the lab and they will run the urine culture Check bladder scan as patient has external urine catheter now Check x-ray of the right hip Labs and medication were reviewed.. Continue same treatment. Continue with symptomatic treatment. Resume home medication. Monitor lytes and vitals. DVT and GI prophylaxis. Further recommendations depends on the clinical course of the patient DVT prophylaxis: On Eliquis GI Prophylaxis: Pepcid PT/OT: Pending Prognosis is guarded
[2024-09-16 17:03] LABS: Glucose,Whole Blood 125 mg/dL (70-110)
[2024-09-16] MEDS ORDERED: DEXTROSE 50% SYRINGE 50 ML IVP PRN ×2 (17:22)
[2024-09-16] MEDS: INSULIN ASPART (NovoLOG) 100 UNIT/ML VIAL SQ SCH (18:04)
[2024-09-16] MEDS: ZINC OXIDE PASTE (Z-GUARD) 1 APPLIC TOPICAL PRN (19:30)
[2024-09-16 20:25] LABS: Glucose,Whole Blood 139 mg/dL (70-110)
[2024-09-17] MEDS: LORazepam 0.5 MG TAB PO STA (00:25)
[2024-09-17] MEDS: diazePAM 5 MG TAB PO PRN (00:47)
[2024-09-17] MEDS: HALOPERIDOL LACTATE 5 MG/ML 1 ML VIAL IM PRN (01:32)
[2024-09-17 07:03] LABS: Glucose,Whole Blood 164 mg/dL (70-110)
[2024-09-17] MEDS: ONDANSETRON 4 MG/2 ML VIAL IVP PRN (08:21)
[2024-09-17 08:34] LABS: Basophils # (A) 0.04 X 10*3/uL (0.00-0.10); Basophils % (A) 0.3 %; Eosinophils # (A) 0.08 X 10*3/uL (0.04-0.35); Eosinophils % (A) 0.5 %; HCT 37.6 % (37.2-46.3); HGB 11.7 g/dL (12.0-15.0); Lymphocytes # (A) 1.08 X 10*3/uL (0.90-5.00); Lymphocytes % (A) 7.1 %; MCH 28.7 pg (27.0-32.0); MCHC 31.1 g/dL (32.0-37.0); MCV 92.4 FL (80.0-97.0); Mean Platelet Volume 9.6 FL (9.5-12.2); Monocytes # (A) 1.32 X 10*3/uL (0.20-1.00); Monocytes % (A) 8.7 %; NRBC Per 100 WBC 0 X 10*3/uL (0.00-0.01); Neutrophils # (A) 12.57 X 10*3/uL (1.80-7.70); Neutrophils % (A) 82.8 %; Platelet Count 279 X 10*3/uL (140-440); RBC 4.07 X 10*6/uL (4.10-5.20); RDW 14.4 % (11.5-14.5); WBC 15.18 X 10*3/uL (4.50-10.00)
[2024-09-17] MEDS: QUEtiapine 25 MG TAB PO PRN (08:37)
[2024-09-17] MEDS ORDERED: QUEtiapine 25 MG TAB PO SCH (09:00)
--- NOTE | 2024-09-17 09:57 | P.DS ---
Providers Date of admission: 09/14/24 09:07 Expected date of discharge: 09/17/24 Attending physician: Avelino Ness MD Primary care physician: Kenzie Thomas Hospital Course: Final Diagnosis: Acute urinary tract infection, gram-negative bacilli Metabolic/toxic encephalopathy could be secondary to medication on the top of UTI Dementia, as per daughter, possibly vascular Right hip pain, rule out fracture Fall x 2 at home. Probably without syncope as per daughter A-fib on Eliquis at home COPD with no acute exacerbation Diabetes mellitus, hemoglobin A1c 7, further diabetic education in clinic with PCP Hypertension Hyperlipidemia Obstructive sleep apnea Hearing difficulty Obesity with BMI of 42.5 Hospital course: History of Present Illness This is a pleasant 84 years old female with past medical history of multiple medical problems as below. Patient this morning is poor historian. As per daughter she took [place] at home and she has history of dementia which makes her more sleepy. She was not slept for 2 days. Patient wake up to verbal stimuli as respond to questions but then go back to sleep. As per daughter she was fine earlier this morning. Will keep monitoring. Because of this information were obtained from the daughter. Patient daughter stated that she was in the bathroom 2 days ago when she slipped and fell on her right side she was complaining from pain in her right leg and her daughter gave her 2 Tylenol's, next day she got up in the middle of the night went to the restroom again on her way back to the bed she could not get into it and she slipped into the floor again. As per daughter she confirms she denies any head trauma. However because of her pain she took [place] and she was sleepy this morning as above Patient is complaining from pain in her right hip area and there is a bruise behind right leg. As per daughters patient denied chest pain or dyspnea, no abdominal complaint, no headache dizziness or weakness or numbness. Patient was eager to go home yesterday but ER attending asked her to to stay 1 day overnight and she agrees. Patient was found to have acute urinary tract infection and started on Rocephin in the emergency room. Maintained on IV antibiotics with significant clinical improvement. Afebrile, WBC 15.18. Daughter at bedside, patient requesting to go home. Benzos discontinued, Seroquel ordered for agitation. Patient will be discharged today in a stable condition with guarded prognosis either to home with daughter or subacute rehab, pending PT evaluation. Patient's daughter states they have not been permitting patient to do a whole lot of activity at home, nursing documenting two-person assist. If patient continues to have falls, anticoagulation will need to be readdressed with PCP. The impression and plan of care has been dictated as directed. : I performed a history and examination of this patient, discussed the same with the dictator. I agree with the dictator's note ,documented as a scribe. Any additional findings or plans will be noted. Microbiology 09/14/24 07:43 Urine,Voided Urine Culture - Preliminary Gram Neg Bacilli 09/15/24 14:05 Urine,Voided Urine Culture - Final Patient Condition at Discharge: Stable Plan - Discharge Summary Discharge Rx Participant: Yes New Discharge Prescriptions: New Omeprazole [PriLOSEC] 20 mg PO AC-BRKFST #30 cap QUEtiapine [SEROquel] 25 mg PO BID PRN #20 tab PRN Reason: Agitation cefUROXime axetiL [Ceftin] 250 mg PO BID 3 Days #6 tab Continue Diltiazem Cd [Cardizem CD] 180 mg PO HS Metoprolol Tartrate [Lopressor] 50 mg PO BID Acetaminophen Tab [Tylenol] 325 - 650 mg PO Q4H PRN MDD 10 tablets PRN Reason: Pain Or Fever > 100.5 metFORMIN HCL 500 mg PO BID Benazepril [Lotensin] 5 mg PO DAILY Apixaban [Eliquis] 5 mg PO BID Discharge Medication List Diltiazem Cd [Cardizem CD] 180 mg PO HS 08/06/14 [History] Metoprolol Tartrate [Lopressor] 50 mg PO BID 08/06/14 [History] Acetaminophen Tab [Tylenol] 325 - 650 mg PO Q4H PRN MDD 10 tablets 09/14/24 [History] Apixaban [Eliquis] 5 mg PO BID 09/14/24 [History] Benazepril [Lotensin] 5 mg PO DAILY 09/14/24 [History] metFORMIN HCL 500 mg PO BID 09/14/24 [History] Omeprazole [PriLOSEC] 20 mg PO AC-BRKFST #30 cap 09/17/24 [Rx] QUEtiapine [SEROquel] 25 mg PO BID PRN #20 tab 09/17/24 [Rx] cefUROXime axetiL [Ceftin] 250 mg PO BID 3 Days #6 tab 09/17/24 [Rx] Follow up Appointment(s)/Referral(s): Kenzie Thomas DO [Primary Care Provider] - 1-2 days
[2024-09-17] MEDS: lisinopriL 5 MG TAB PO SCH (11:25)
[2024-09-17 12:21] LABS: Glucose,Whole Blood 142 mg/dL (70-110)
--- NOTE | 2024-09-17 13:07 | XR ---
EXAMINATION TYPE: XR chest 1V portable DATE OF EXAM: 09/17/2024 Comparison: 09/14/2024 Clinical History: 84 year-old female shortness of breath, dyspnea Findings: Left anterior chest wall generator with right ventricular lead. Heart mildly enlarged. Diffuse inters titial density has developed. No sizable pleural effusion. Impression: Correlate for CHF with development of pulmonary vascular congestion. [facility], , 09/17/2024 1:05 PM
--- NOTE | 2024-09-17 14:13 | CT ---
EXAMINATION TYPE: CT angio chest CT DLP: 513.9 mGycm, Automated exposure control for dose reduction was used. DATE OF EXAM: 09/17/2024 2:01 PM COMPARISON: Chest radiograph from same day. CLINICAL INDICATION:Female, 84 years old with history of dyspnea and elevated d-dimer; dyspnea and el evated d-dimer TECHNIQUE/CONTRAST: CTA scan of the thorax is performed with IV Contrast, patient injected with 100 mL of Isovue 370, pul monary embolism protocol. MIP images are created and reviewed. FINDINGS: Pulmonary Artery: There is no evidence for a central filling defect within the pulmonary vasculature to suggest acute pulmonary embolism. Limited evaluation of the segmental and subsegmental branches se condary to bolus timing. The pulmonary artery is dilated measuring 3.7 cm in diameter. Reflux of cont rast into the IVC and hepatic veins. Lungs/Pleura: No evidence of focal consolidation, pleural effusion or pneumothorax. Minimal dependent bilateral basilar subsegmental atelectasis. Airway: Large airways are patent. Heart: The heart is moderately enlarged for size.. Left chest wall single-lead device with tip in the right atrium. No pericardial effusion. Vasculature: No evidence of aortic aneurysm. Mild vascular calcification of the aorta and its branche s. Mediastinum: No gross evidence of adenopathy. Subcarinal and right hilar calcified nonenlarged lymph nodes. Musculoskeletal: No acute osseous abnormalities. Mild multilevel degenerative disc disease. Soft Tissues: Unremarkable. Lower neck: No significant findings. 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 Probable partially visualized right renal exophytic 1.7 cm cyst. IMPRESSION: 1. No evidence of central pulmonary embolism. Limited evaluation of the segmental and subsegmental br anches. Artifact identified involving the right mid and lower lung segmental subsegmental arteries. C annot exclude pulmonary emboli in this region. 2. Cardiomegaly with findings of right heart dysfunction. 3. Pulmonary arterial hypertension. 4. Sequelae of prior granulomatous disease. [facility], , 09/17/2024 2:11 PM
[2024-09-17 17:06] LABS: Glucose,Whole Blood 122 mg/dL (70-110)
[2024-09-17 20:26] LABS: Glucose,Whole Blood 147 mg/dL (70-110)
[2024-09-18 07:33] LABS: Glucose,Whole Blood 189 mg/dL (70-110)
[2024-09-18 12:23] LABS: Glucose,Whole Blood 108 mg/dL (70-110)
[2024-09-18] MEDS: ACETAMINOPHEN TAB 325 MG TAB PO PRN (12:54)
[2024-09-18 14:15] VITALS: BP 112/65; PULSE 108; RESP 21; TEMP 97.6
== END 2024-09-18 15:10 | disposition home or self-care (01) | DRG 689 ==
LOC: EC 06:15 → 5NMEDONC 09:07 → OBSVTOIN 09-16 14:11
PROVIDERS: ADMIT Family Medicine; ATTEND Family Medicine
DX: N39.0 Urinary tract infection, site not specified (principal); G92.8 Other toxic encephalopathy; J96.01 Acute respiratory failure with hypoxia; Z68.41 Body mass index [BMI] 40.0-44.9, adult; I27.21 Secondary pulmonary arterial hypertension; E66.01 Morbid (severe) obesity due to excess calories; F01.50 Vascular dementia, unspecified severity, without behavioral disturbance, psychotic disturbance, mood disturbance, and anxiety; E11.9 Type 2 diabetes mellitus without complications; J44.9 Chronic obstructive pulmonary disease, unspecified; I48.91 Unspecified atrial fibrillation; I11.9 Hypertensive heart disease without heart failure; B96.20 Unspecified Escherichia coli [E. coli] as the cause of diseases classified elsewhere; M17.11 Unilateral primary osteoarthritis, right knee; G89.29 Other chronic pain; E78.5 Hyperlipidemia, unspecified; H91.90 Unspecified hearing loss, unspecified ear; I69.911 Memory deficit following unspecified cerebrovascular disease; G47.33 Obstructive sleep apnea (adult) (pediatric); W01.0XXA Fall on same level from slipping, tripping and stumbling without subsequent striking against object, initial encounter; Y92.002 Bathroom of unspecified non-institutional (private) residence as the place of occurrence of the external cause; Z91.81 History of falling; Z79.899 Other long term (current) drug therapy; Z79.01 Long term (current) use of anticoagulants; Z79.84 Long term (current) use of oral hypoglycemic drugs; Z87.891 Personal history of nicotine dependence
CPT/HCPCS: 36415; 71045; 71046; 71275; 73502; 80048; 80053; 81001; 83036; 83880; 84484; 85025; 85379; 87077; 87086; 87186; 87636; 93005; 96374; 96375; 96376; 99285